=== PATIENT | female | born 1965 | race African-American/Black ===

== ENCOUNTER 2016-11-29 07:51 | Emergency (ER) | payer OTHER ==
[~2016-11-29] VITALS: Ht 157.5 cm; Wt 98.0 kg
[~2016-11-29 07:51] MED LIST: ALEVE220 MG PO; APAP500 PO; HYDROCODONE-AP1 EAC6 PO; UNICOMPLEX M TA1 TA1 PO; VENTOLIN HFA 1818 GM INH
[2016-11-29] MEDS ORDERED: BLOOD PRESSURE PILL (08:16)
== END 2016-11-29 08:31 | disposition home or self-care (01) ==
LOC: ER 07:51
DX: M79.644 Pain in right finger(s) (principal); J45.909 Unspecified asthma, uncomplicated; E11.9 Type 2 diabetes mellitus without complications; F10.99 Alcohol use, unspecified with unspecified alcohol-induced disorder; Z90.710 Acquired absence of both cervix and uterus; Z88.8 Allergy status to other drugs, medicaments and biological substances

== ENCOUNTER 2017-06-21 18:24 | Emergency (ER) | payer OTHER ==
[~2017-06-21] VITALS: Ht 157.5 cm; Wt 97.5 kg
[~2017-06-21 18:24] MED LIST changes: +BLOOD PRESSURE PILL
[2017-06-21 18:26] VITALS: BP 153/80
[2017-06-21 18:40] LABS: URINE BILIRUBIN NEGATIVE (Negative); URINE BLOOD 3+ (Negative); URINE CLARITY SL CLOUDY; URINE COLOR YELLOW; URINE GLUCOSE-RANDOM* NEGATIVE (Negative); URINE KETONES NEGATIVE (Negative); URINE LEUKOCYTES-REFLEX 2+ (Negative); URINE NITRITE-REFLEX NEGATIVE (Negative); URINE PROTEIN (DIPSTICK) 2+ (Negative); URINE SPECIFIC GRAVITY 1.025 (1.005-1.035); URINE UROBILINOGEN 0.2 E.U./dl (0.2-1.0)
[2017-06-21] MEDS ORDERED: MACROBID 100 M100 M1 PO (18:44)
[2017-06-21] MEDS ORDERED: PYRIDIUM200 MG PO (18:44)
[2017-06-21 18:53] LABS: CASTS None Seen /LPF (None Seen); MUCUS 4-6 Moderate strn/LPF (None Seen); SQUAMOUS >10 Many /LPF (0-3); URINE RBC >20 Many /HPF (0-2)
[2017-06-21 18:54] LABS: CRYSTALS None Seen /LPF (None Seen)
[2017-11-22] MEDS ORDERED: VITAMIN D5000 UNIT PO (08:16)
== END 2017-06-21 19:00 | disposition home or self-care (01) ==
LOC: ER 18:24
PROVIDERS: Emergency Medicine
DX: N39.0 Urinary tract infection, site not specified (principal); J45.909 Unspecified asthma, uncomplicated; E11.9 Type 2 diabetes mellitus without complications; Z90.710 Acquired absence of both cervix and uterus; Z88.8 Allergy status to other drugs, medicaments and biological substances

== ENCOUNTER → 2017-08-21 | Outpatient (CLI) | payer OTHER ==
[~2017-08-21] MED LIST changes: +MACROBID 100 M100 M1 PO; +PYRIDIUM200 MG PO
== END ==
LOC: RAD 09:00
DX: I10 Essential (primary) hypertension (principal)

== ENCOUNTER 2017-11-16 02:50 | Emergency (ER) | payer OTHER ==
[~2017-11-16] VITALS: Ht 157.5 cm; Wt 97.5 kg
--- NOTE | ~2017-11-16 | EKG ---
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 11/16/17 0807 [phone] Memo Kirkland MD, FACC /EPI
[2017-11-16] MEDS ORDERED: DIOVAN40 MG PO (03:17)
[2017-11-16] MEDS ORDERED: KEFLEX500 M1 PO (03:18)
[2017-11-16] MEDS ORDERED: TOPROL XL25 MG PO (03:18)
[2017-11-16] MEDS ORDERED: TRAMADOL 50 MG50 MG PO (03:19)
[2017-11-16 03:26] LABS: ABSOLUTE NEUTROPHILS 3.9 thou/uL (1.4-8.2); BASOPHILS 0.8 % (0.0-2.0); EOSINOPHILS 0.7 % (0.0-3.0); HEMATOCRIT 34.9 % (37.0-47.0); HEMOGLOBIN 11.7 gm/dL (12.0-15.0); LYMPHOCYTES 39.1 % (24.0-44.0); MCH 29.4 pg (26.0-34.0); MCHC 33.4 g/dL (28.0-37.0); MCV 87.8 fL (80.0-100.0); MONOCYTES 10.7 % (1.0-8.0); PLATELET COUNT 386 thou/uL (150-400); POLYS 48.7 % (36.0-66.0); RBC 3.98 mil/uL (4.20-5.00); RDW 14.7 % (10.5-14.5); WBC 7.9 thou/uL (4.0-11.0)
[2017-11-16 03:35] LABS: ANION GAP 6 mmol/L (7-16); BUN 16 mg/dL (7-18); CALCIUM 8.7 mg/dL (8.5-10.1); CHLORIDE 102 mmol/L (98-107); CO2 26 mmol/L (21-32); CREATININE 0.8 mg/dL (0.6-1.0); GLUCOSE 109 mg/dL (74-106); POTASSIUM 3.9 mmol/L (3.5-5.1); SODIUM 134 mmol/L (136-145)
[2017-11-16 03:43] LABS: ALBUMIN 3.5 g/dL (3.4-5.0); LIPASE 123 U/L (73-393); SGOT 16 U/L (15-37); SGPT 22 U/L (30-65); TOTAL BILIRUBIN 0.4 mg/dL (<0.1-1.0); TOTAL PROTEIN 7.4 g/dL (6.4-8.2); TROPONIN-I <0.06 ng/mL (<0.06)
== END 2017-11-16 04:21 | disposition home or self-care (01) ==
LOC: ER 02:50
PROVIDERS: Emergency Medicine
DX: R10.33 Periumbilical pain (principal); J45.909 Unspecified asthma, uncomplicated; Z90.49 Acquired absence of other specified parts of digestive tract; Z88.8 Allergy status to other drugs, medicaments and biological substances

== ENCOUNTER → 2018-01-02 | Outpatient (CLI) | payer OTHER ==
[~2018-01-02] MED LIST changes: +DIOVAN40 MG PO; +KEFLEX500 M1 PO; +TOPROL XL25 MG PO; +TRAMADOL 50 MG50 MG PO; +VITAMIN D5000 UNIT PO
== END ==
LOC: BC 09:15
DX: Z12.31 Encounter for screening mammogram for malignant neoplasm of breast (principal); J45.909 Unspecified asthma, uncomplicated

== ENCOUNTER 2018-03-24 02:44 | Emergency (ER) | payer OTHER ==
[~2018-03-24] VITALS: Ht 157.5 cm; Wt 96.6 kg
[2018-03-24] MEDS ORDERED: FLONASE 0.05%50 MCG NASAL (03:35)
[2018-03-24] MEDS ORDERED: CEPACOL SORE T1 EAC8 PO (03:35)
[2018-03-24 03:40] VITALS: BP 144/71
== END 2018-03-24 03:42 | disposition home or self-care (01) ==
LOC: ER 02:44
DX: J02.9 Acute pharyngitis, unspecified (principal); E11.9 Type 2 diabetes mellitus without complications; J45.909 Unspecified asthma, uncomplicated; I10 Essential (primary) hypertension; G47.30 Sleep apnea, unspecified; Z88.8 Allergy status to other drugs, medicaments and biological substances; Z90.711 Acquired absence of uterus with remaining cervical stump

== ENCOUNTER 2018-05-05 08:08 | Emergency (ER) | payer OTHER ==
[~2018-05-05] VITALS: Ht 157.5 cm; Wt 98.9 kg
[~2018-05-05 08:08] MED LIST changes: +CEPACOL SORE T1 EAC8 PO; +FLONASE 0.05%50 MCG NASAL
[2018-05-05] MEDS ORDERED: MUCINEX D ER 11 EACH PO (09:27)
[2018-05-05] MEDS ORDERED: CEPACOL SORETH1 EAC1 PO (09:27)
[2018-05-05 09:46] VITALS: BP 143/80
== END 2018-05-05 09:47 | disposition home or self-care (01) ==
LOC: ER 08:08
DX: J06.9 Acute upper respiratory infection, unspecified (principal); I10 Essential (primary) hypertension; G47.30 Sleep apnea, unspecified; J45.909 Unspecified asthma, uncomplicated; E11.9 Type 2 diabetes mellitus without complications; Z88.8 Allergy status to other drugs, medicaments and biological substances; Z87.440 Personal history of urinary (tract) infections; Z90.711 Acquired absence of uterus with remaining cervical stump; Z98.890 Other specified postprocedural states

== ENCOUNTER 2018-05-29 21:37 | Emergency (ER) | payer OTHER ==
[~2018-05-29] VITALS: Ht 157.5 cm; Wt 98.9 kg
[~2018-05-29 21:37] MED LIST changes: +CEPACOL SORETH1 EAC1 PO; +MUCINEX D ER 11 EACH PO
[2018-05-29] MEDS ORDERED: NORCO 5-325 TA1 EACH PO (22:41)
[2018-05-29 23:01] VITALS: BP 154/67
== END 2018-05-29 23:01 | disposition home or self-care (01) ==
LOC: ER 21:37
DX: M79.672 Pain in left foot (principal); E11.9 Type 2 diabetes mellitus without complications; J45.909 Unspecified asthma, uncomplicated; I10 Essential (primary) hypertension; G47.30 Sleep apnea, unspecified; Z98.890 Other specified postprocedural states; Z87.891 Personal history of nicotine dependence; Z88.8 Allergy status to other drugs, medicaments and biological substances; Z90.711 Acquired absence of uterus with remaining cervical stump

== ENCOUNTER 2018-07-17 10:29 | Emergency (ER) | payer OTHER ==
[~2018-07-17] VITALS: Ht 157.5 cm; Wt 104.8 kg
[~2018-07-17 10:29] MED LIST changes: +NORCO 5-325 TA1 EACH PO
[2018-07-17 10:52] LABS: URINE BILIRUBIN NEGATIVE (Negative); URINE BLOOD NEGATIVE (Negative); URINE CLARITY CLEAR; URINE COLOR YELLOW; URINE GLUCOSE-RANDOM* NEGATIVE (Negative); URINE KETONES TRACE (Negative); URINE LEUKOCYTES-REFLEX TRACE (Negative); URINE NITRITE-REFLEX NEGATIVE (Negative); URINE PROTEIN (DIPSTICK) NEGATIVE (Negative); URINE SPECIFIC GRAVITY >= 1.030 (1.005-1.035); URINE UROBILINOGEN 0.2 E.U./dl (0.2-1.0)
[2018-07-17 11:30] LABS: ABSOLUTE NEUTROPHILS 3.4 thou/uL (1.4-8.2); BASOPHILS 1.3 % (0.0-2.0); HEMATOCRIT 37.5 % (37.0-47.0); HEMOGLOBIN 12.3 gm/dL (12.0-15.0); LYMPHOCYTES 39.3 % (24.0-44.0); MCH 29.1 pg (26.0-34.0); MCHC 32.8 g/dL (28.0-37.0); MCV 88.9 fL (80.0-100.0); MONOCYTES 10.5 % (1.0-8.0); PLATELET COUNT 396 thou/uL (150-400); POLYS 47.9 % (36.0-66.0); RBC 4.22 mil/uL (4.20-5.00)
[2018-07-17 11:39] LABS: CALCIUM 9.2 mg/dL (8.5-10.1); POTASSIUM 3.7 mmol/L (3.5-5.1)
[2018-07-17 11:44] LABS: ALBUMIN 4.1 g/dL (3.4-5.0); TOTAL BILIRUBIN 0.4 mg/dL (<0.1-1.0); TOTAL PROTEIN 8.7 g/dL (6.4-8.2)
[2018-07-17] MEDS ORDERED: HYDROCHLOROTH12.5 M1 PO (13:05)
[2018-07-17 13:19] VITALS: BP 144/63
--- NOTE | 2018-07-17 17:25 | EKG ---
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 : 1965 Requested By: Albaro Mace Order Number: [id number] MD: Memo Kirkland Measurements Intervals [place] Rate: 73 P: 69 [place]: 232 QRS: 37 QRSD: 96 T: 27 QT: 415 QTc: 458 Interpretive Statements Sinus rhythm Prolonged [place] interval Probable anteroseptal infarct, old Compared to ECG 11/16/2017 03:06:11 No significant changes Electronically Signed On 07-17-2018 17:25:35 CDT by Memo Kirkland [email or web address] ��������������������������������������������� <ELECTRONICALLY SIGNED> ���������������������������������������� By: Memo Kirkland MD, [facility] ��������������������������������������������� 07/17/18 1725 1138 [id number] Memo Kirkland MD, [facility] /EPI
== END 2018-07-17 13:25 | disposition home or self-care (01) ==
LOC: ER 10:29
PROVIDERS: Physician Assistant
DX: R42 Dizziness and giddiness (principal); R55 Syncope and collapse; I10 Essential (primary) hypertension; G47.30 Sleep apnea, unspecified; J45.909 Unspecified asthma, uncomplicated; Z88.8 Allergy status to other drugs, medicaments and biological substances; Z87.891 Personal history of nicotine dependence; Z90.711 Acquired absence of uterus with remaining cervical stump; Z98.890 Other specified postprocedural states; Z87.440 Personal history of urinary (tract) infections

== ENCOUNTER 2018-08-07 09:18 | Emergency (ER) | payer OTHER ==
[~2018-08-07] VITALS: Ht 157.5 cm; Wt 105.2 kg
[~2018-08-07 09:18] MED LIST changes: +HYDROCHLOROTH12.5 M1 PO
[2018-08-07] MEDS ORDERED: NAPROSYN500 MG PO (10:31)
[2018-08-07] MEDS ORDERED: VALIUM5 MG PO (10:31)
[2018-08-07 10:49] VITALS: BP 152/58
[2018-08-08] MEDS ORDERED: FLEXERIL PO (04:22)
== END 2018-08-07 10:48 | disposition home or self-care (01) ==
LOC: ER 09:18
DX: M62.838 Other muscle spasm (principal); E11.9 Type 2 diabetes mellitus without complications; J45.909 Unspecified asthma, uncomplicated; I10 Essential (primary) hypertension; G47.30 Sleep apnea, unspecified; Z87.440 Personal history of urinary (tract) infections; Z87.891 Personal history of nicotine dependence; Z88.8 Allergy status to other drugs, medicaments and biological substances

== ENCOUNTER 2018-08-08 04:04 | Emergency (ER) | payer OTHER ==
[~2018-08-08] VITALS: Ht 157.5 cm; Wt 105.2 kg
[~2018-08-08 04:04] MED LIST changes: +NAPROSYN500 MG PO; +VALIUM5 MG PO
[2018-08-08 04:08] VITALS: BP 182/87
[2018-08-08] MEDS ORDERED: FLEXERIL PO (04:22)
== END 2018-08-08 04:40 | disposition home or self-care (01) ==
LOC: ER 04:04
DX: M62.838 Other muscle spasm (principal); M25.511 Pain in right shoulder; E11.9 Type 2 diabetes mellitus without complications; J45.909 Unspecified asthma, uncomplicated; I10 Essential (primary) hypertension; G47.30 Sleep apnea, unspecified; Z87.891 Personal history of nicotine dependence; Z88.8 Allergy status to other drugs, medicaments and biological substances; Z90.711 Acquired absence of uterus with remaining cervical stump; Z98.890 Other specified postprocedural states; Z87.440 Personal history of urinary (tract) infections

== ENCOUNTER → 2019-03-06 | Outpatient (CLI) | payer OTHER ==
[~2019-03-06] MED LIST changes: +FLEXERIL PO
== END ==
LOC: RAD 10:08
DX: Z12.31 Encounter for screening mammogram for malignant neoplasm of breast (principal)

== ENCOUNTER 2019-08-26 09:39 | Emergency (ER) | payer OTHER ==
[~2019-08-26] VITALS: Ht 157.5 cm; Wt 101.6 kg
[2019-08-26 10:50] VITALS: BP 141/40
== END 2019-08-26 11:12 | disposition home or self-care (01) ==
LOC: ER 09:39
DX: M25.561 Pain in right knee (principal); I10 Essential (primary) hypertension; E66.9 Obesity, unspecified; J45.909 Unspecified asthma, uncomplicated; G47.30 Sleep apnea, unspecified; Z68.41 Body mass index [BMI] 40.0-44.9, adult; Z90.711 Acquired absence of uterus with remaining cervical stump; Z98.51 Tubal ligation status; Z87.440 Personal history of urinary (tract) infections; Z87.891 Personal history of nicotine dependence; Z88.8 Allergy status to other drugs, medicaments and biological substances

== ENCOUNTER 2019-12-06 08:38 | Emergency (ER) | payer OTHER ==
[~2019-12-06] VITALS: Ht 170.2 cm; Wt 104.3 kg
[2019-12-06] MEDS ORDERED: SPIRONOLACTONE50 MG PO (08:59)
[2019-12-06] MEDS ORDERED: TIZANIDINE4 MG/1 TA1 PO (08:59)
[2019-12-06 09:11] LABS: ABSOLUTE NEUTROPHILS 4.7 thou/uL (1.4-8.2); BASOPHILS 1.3 % (0.0-2.0); EOSINOPHILS 0.7 % (0.0-3.0); HEMATOCRIT 37.6 % (37.0-47.0); HEMOGLOBIN 12.3 gm/dL (12.0-15.0); MCH 29.2 pg (26.0-34.0); MCHC 32.8 g/dL (28.0-37.0); MCV 88.9 fL (80.0-100.0); MONOCYTES 10.7 % (1.0-8.0); PLATELET COUNT 467 thou/uL (150-400); POLYS 57.3 % (36.0-66.0); RBC 4.23 mil/uL (4.20-5.00); RDW 14.3 % (10.5-14.5); WBC 8.1 thou/uL (4.0-11.0)
[2019-12-06 09:27] LABS: ANION GAP 10 mmol/L (7-16); BUN 11 mg/dL (7-18); CALCIUM 10.2 mg/dL (8.5-10.1); CHLORIDE 98 mmol/L (98-107); CO2 29 mmol/L (21-32); CREATININE 0.7 mg/dL (0.6-1.0); GLUCOSE 102 mg/dL (74-106); SODIUM 137 mmol/L (136-145)
--- NOTE | 2019-12-06 09:29 | EKG ---
[facility] [place] [address] ELECTROCARDIOGRAM REPORT Name: LISA LUGO Room #: [facility]..#: [id number] Admission: 12/06/19 Attend Phys: Discharge: Date of : 69 Report #: [id number] THIS REPORT FOR: cc: Jessica Blunt DNP, Mary E. DNP Lundgren, Craig H. 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 : 1965 Requested By: Jadon Tolbert Order Number: [id number] MD: Memo Kirkland Measurements Intervals [place] Rate: 82 P: 51 [place]: 210 QRS: 26 QRSD: 96 T: 20 QT: 385 QTc: 450 Interpretive Statements Sinus rhythm Prolonged [place] interval Left ventricular hypertrophy Poor R wave progression Baseline wander in lead(s) V2 Compared to ECG 07/17/2018 11:38:30 No significant change was found Electronically Signed On 12-06-2019 9:29:39 CDT by Memo Kirkland [email or web address] <ELECTRONICALLY SIGNED> By: Memo Kirkland MD, [facility] 12/06/19 0929 Memo Kirkland MD, [facility] /EPI
[2019-12-06 09:37] LABS: ALBUMIN 3.9 g/dL (3.4-5.0); SGOT 17 U/L (15-37); SGPT 24 U/L (30-65); TOTAL BILIRUBIN 0.3 mg/dL (0.2-1.0); TOTAL PROTEIN 8.7 g/dL (6.4-8.2); TROPONIN-I <0.06 ng/mL (<0.06)
[2019-12-06] MEDS ORDERED: TRAMADOL 50 MG50 MG PO (09:46)
[2019-12-06] MEDS ORDERED: NAPROSYN500 MG PO (09:46)
[2019-12-06 10:23] VITALS: BP 155/94
== END 2019-12-06 10:24 | disposition home or self-care (01) ==
LOC: ER 08:38
PROVIDERS: Emergency Medicine
DX: M94.0 Chondrocostal junction syndrome [Tietze] (principal); E11.9 Type 2 diabetes mellitus without complications; I10 Essential (primary) hypertension; J45.909 Unspecified asthma, uncomplicated; Z87.891 Personal history of nicotine dependence; Z88.8 Allergy status to other drugs, medicaments and biological substances; Z79.899 Other long term (current) drug therapy; Z98.51 Tubal ligation status

== ENCOUNTER → 2020-08-27 | Outpatient (CLI) | payer OTHER ==
[~2020-08-27] MED LIST changes: +SPIRONOLACTONE50 MG PO; +TIZANIDINE4 MG/1 TA1 PO
== END ==
LOC: CAT 14:31
PROVIDERS: ATTEND Internal Medicine
DX: Z13.6 Encounter for screening for cardiovascular disorders (principal); I25.10 Atherosclerotic heart disease of native coronary artery without angina pectoris; E78.00 Pure hypercholesterolemia, unspecified